=== PATIENT | female | born 1980 | race Caucasian/White ===

== ENCOUNTER → 2017-08-02 15:52 | Outpatient (CLI) | payer BC, SELFPAY | PROVIDERS: PCP Family Medicine; Visit Provider Family Medicine | DX: R00.2 Palpitations (principal) | CPT/HCPCS: 93270 ==

== ENCOUNTER → 2019-01-31 10:26 | Outpatient (POV) | payer BC, SELFPAY | PROVIDERS: Visit Provider Dermatology | DX: Z00.00 Encounter for general adult medical examination without abnormal findings (principal) ==

== ENCOUNTER → 2020-11-28 08:02 | Outpatient (CLI) | payer BC, SELFPAY ==
--- NOTE | 2020-11-28 08:07 | XR_ITS ---
PROCEDURE: XR CERVICAL SPINE 4V CLINICAL INDICATION: NECK PAIN COMPARISON: No exams were available for comparison FINDINGS: Normal vertebral body heights and alignment are noted. The C1-2 alignment is within normal limits. No acute fractures or listhesis. Bone density is normal. Prevertebral soft tissues and the visualized lung apices are clear. IMPRESSION: No acute abnormality. Dictated by: Yesica Marie 11/28/2020 08:28 Yesica Marie in [facility] 11/28/2020 08:28
== END ==
PROVIDERS: PCP Family Medicine; Visit Provider Family Medicine
DX: M54.2 Cervicalgia (principal)
CPT/HCPCS: 72050

== ENCOUNTER → 2020-12-03 14:13 | Outpatient (CLI) | payer BC, SELFPAY ==
--- NOTE | 2020-12-03 14:21 | US_ITS ---
PROCEDURE: US TRANSVAGINAL CLINICAL INDICATION: pelvic pain COMPARISON: CT ABDPELW/O CT ABD PELVIS W/O CONTRAST from 12/05/2014 FINDINGS: UTERUS: 8cm x 4cmx 3cm with a combined endometrial thickness of 1.1mm LEFT OVARY: [id number] with a volume of 7.8ml. RIGHT OVARY: [id number] with a volume of 4.2ml. There is a nabothian cyst present. There is a 13 mm left ovarian cyst which has a crenulated appearance and could be due to recent rupture. A 12 mm cystic structure present in the lower pelvic area inferior to the cul-de-sac area IMPRESSION: The uterus has an unremarkable appearance. No endometrial thickening apparent. 12 mm crenulated right ovarian cyst which could be due to recent rupture. Nonspecific 12 mm cystic lesion in the lower pelvis inferior to the cul-de-sac, etiology indeterminate Dictated by: Bud Nguyen MD 12/03/2020 17:31 Bud Nguyen MD in [facility] 12/03/2020 17:31
== END ==
PROVIDERS: PCP Family Medicine; Visit Provider Obstetrics & Gynecology
DX: R10.2 Pelvic and perineal pain (principal)
CPT/HCPCS: 76830

== ENCOUNTER → 2021-01-17 09:38 | Outpatient (CLI) | payer BC, SELFPAY ==
--- NOTE | 2021-01-17 09:42 | MR_ITS ---
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 3-D MIP and myelographic images are also rendered and reviewed FINDINGS: There is normal alignment. There is slight reversal of the lower cervical lordosis. The spinal cord has an unremarkable appearance. Unremarkable craniocervical junction. C2-C3: Unremarkable. C3-C4: Unremarkable. C4-C5: Unremarkable. C5-C6: There is slight decrease in the disc space with very minimal bulging disc. C6-C7: Unremarkable. C7-T1: Unremarkable. No canal stenosis or herniated disc IMPRESSION: Slight reversal of cervical lordosis and minimal degenerative disc disease at C5-C6 otherwise negative MRI of the cervical spine Dictated by: Bud Nguyen MD 01/20/2021 08:08 Bud Nguyen MD in [facility] 01/20/2021 08:08
== END ==
PROVIDERS: PCP Family Medicine; Visit Provider Family Medicine
DX: M50.022 Cervical disc disorder at C5-C6 level with myelopathy (principal); M50.122 Cervical disc disorder at C5-C6 level with radiculopathy
CPT/HCPCS: 72141; 76376

== ENCOUNTER → 2022-09-24 07:47 | Outpatient (CLI) | payer BC, SELFPAY ==
--- NOTE | 2022-09-24 07:54 | XR_ITS ---
FINAL REPORT CLINICAL HISTORY: TUBERCULOSIS EXPOSURE FINDINGS: Two views of the chest were obtained. The heart size and pulmonary vascularity are within normal limits. The mediastinum is normal. No acute pulmonary abnormality is identified. There is no pneumothorax. The bony thorax is intact. IMPRESSION: No active cardiopulmonary disease. Reviewed, Interpreted and Dictated by Quinton Trotter III, MD Transcribed by Valeria Ritchie Authenticated and [facility]
== END ==
LOC: RAD 07:48
PROVIDERS: PCP Family Medicine; Visit Provider Family Medicine
DX: R76.12 Nonspecific reaction to cell mediated immunity measurement of gamma interferon antigen response without active tuberculosis (principal)
CPT/HCPCS: 71046

== ENCOUNTER → 2022-12-18 08:09 | Outpatient (CLI) | payer BC, SELFPAY ==
[2022-12-22 17:12] LABS: QuantiFERON-TB Gold Plus Negative (Negative)
== END ==
LOC: LAB 08:10
PROVIDERS: PCP Family Medicine; Visit Provider Nurse Practitioner Family
DX: Z22.7 Latent tuberculosis (principal)
CPT/HCPCS: 36415; 86480

== ENCOUNTER 2023-06-12 16:00 | Emergency (ER) | payer BC, SELFPAY ==
[2023-06-12 16:29] VITALS: BMI 24.2
[2023-06-12 16:30] VITALS: BP 129/73; PULSE 95; RESP 19; TEMP 36.9; O2SAT 100; BMI 27.3
[2023-06-12] MEDS: TET/DIPHTH/PERT-ADULT 0.5ML SYRINGE 0.5 ML IM (16:35)
--- NOTE | 2023-06-12 16:45 | ED_ITS ---
Discharge Plan Disposition Patient Disposition: Home, Self-Care Condition: Good Prescriptions Prescriptions: No Action losartan 25 mg tablet 50 mg PO DAILY spironolactone 25 mg tablet 25 mg PO DAILY zolpidem 10 mg tablet 10 mg PO HS PRN citalopram [Celexa] 20 mg tablet 20 mg PO DAILY Qty: 30 2RF Referrals Follow up/Referrals: Preston Mayorga MD [Primary Care Provider] - See instructions Activity Restrictions/Add. Instructions Additional Instructions/Restrictions: keep area clean and dry suture removal in 10 days watch for s/s of infection Clinical Impressions Clinical Impression: Laceration Instructions Patient Instructions: DI for Laceration Repair, DI for Laceration Repair -- Finger, How to Care for a Laceration After Repair Discharge ED Provider: Xochilt ([facility])[place] [facility] HPI General Stated complaint: AO laceration ring finger left hand Mode of Arrival: Ambulatory Source of Information: Patient Limitations: No Limitations Time Seen by Provider: 06/12/23 16:45 Description of Symptoms (Recalled from Triage Doc. 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 Related Data Home Medications Medication Instructions Recorded Confirmed losartan 25 mg tablet 50 mg PO DAILY blood pressure 10/06/18 06/02/19 spironolactone 25 mg tablet 25 mg PO DAILY 11/28/20 zolpidem 10 mg tablet 10 mg PO HS PRN 11/28/20 Previous Rx's Medication Instructions Recorded citalopram 20 mg tablet (Celexa) 20 mg PO DAILY #30 tabs 02/11/21 Allergies Allergy/AdvReac Type Severity Reaction Status Date / Time clindamycin Allergy Verified 06/12/23 16:40 From KEFLEX Allergy Unknown I-HIVES Uncoded 12/10/20 08:52 PENICILLIN Allergy Unknown I-HIVES Uncoded 12/10/20 08:52 Worker's Comp Is this a Worker's Comp case?: No [facility] Disclaimer: The information contained in this section may have been updated after the patient was seen, as this information can be updated by other users. Social History , [employer]) Smoking Status: Former smoker alcohol intake: current substance use type: denies use current occupational status: employed Travel in the last 8 weeks: None household members: spouse housing: house ROS Obtained: Yes All systems reviewed & no additional complaints except as documented Constitutional Constitutional: Reports system reviewed and no additional complaints, except as documented Eyes Eyes: Reports system reviewed and no additional complaints, except as documented ENT Ears, Nose, Mouth, and Throat: Reports system reviewed and no additional complaints, except as documented Cardiovascular Cardiovascular: Reports system reviewed and no additional complaints, except as documented Respiratory Respiratory: Reports system reviewed and no additional complaints, except as documented Musculoskeletal Musculoskeletal: Reports system reviewed and no additional complaints, except as documented Integumentary/Breasts Skin/Breast: Reports system reviewed and no additional complaints, except as documented, Reports as per HPI, Reports wounds and Reports other (lac) Neurologic Neurologic: Reports system reviewed and no additional complaints, except as documented Hematologic/Lymphatic Henatologic/Lymphatic: Reports system reviewed and no additional complaints, except as documented Allergic/Immunologic Allergic/Immunologic: Reports system reviewed and no additional complaints, except as documented Physical Exam General General appearance: alert Head Head exam: atraumatic Eye Eye exam: Present normal appearance and PERRL ENT ENT exam: Present normal exam Respiratory Respiratory exam: Present normal lung sounds bilaterally Cardiovascular Cardiovascular exam: Present regular rate and normal rhythm Expanded Upper Extremity Exam Left: Hand L/R back image: 1. lac Neurological Exam Neurological exam: Present alert and oriented X3 Medical Decision Making Medical Records Medical records reviewed: Yes I reviewed the patient's medical records. [place] Inquiry Pt receiving controlled substance: No [place] was queried for this patient: No Vital Signs: 06/12/23 16:30 Temperature 98.4 F Temperature Source Oral Pulse Rate [Right Brachial] 95 H Respiratory Rate 19 Blood Pressure [Right Arm] 129/73 Blood Pressure Mean [Right Arm] 91 Blood Pressure Source [Right Arm] Automatic Cuff Blood Pressure Position [Right Arm] Sitting 02 Sat by Pulse Oximetry 100 Oxygen Delivery Method Room Air Lab Data Lab results reviewed: Yes I reviewed the patient's lab results. Orders (Tests/Meds): ED MEDICATIONS Generic Name Dose Route Start Last Admin Trade Name Navin PRN Reason Stop Dose Admin Tetanus/Reduced Diphtheria/Acell Pertussis 0.5 ml 06/12/23 16:30 Tet/Diphth/Pert-Adult 0.5ml Syringe IM 06/12/23 16:31 .ONCE ONE Procedures Laceration Laceration 1: Site: finger Size (cm): 0.5 Description: linear Depth: simple, single layer Local Anesthetic: lidocaine 1% Amount of anesthesia used (mL): 1 Pre-repair: wound explored and deep structures intact Skin layer closed with: nylon Size (cm): 5-0 Number of sutures: 2 Technique: simple, interrupted
[2023-06-12 16:50] VITALS: BP 129/73; PULSE 95; RESP 19; TEMP 36.9; O2SAT 100
== END 2023-06-12 16:54 | disposition home or self-care (01) ==
PROVIDERS: Emergency Provider Nurse Practitioner Family; PCP Family Medicine
DX: S61.215A Laceration without foreign body of left ring finger without damage to nail, initial encounter (principal); W26.8XXA Contact with other sharp object(s), not elsewhere classified, initial encounter; Z23 Encounter for immunization
CPT/HCPCS: 12001; 90471; 90715; 99204; 99213; G0463